=== PATIENT | female | born 1930 | race Caucasian/White ===

== ENCOUNTER 2016-11-26 19:22 | Emergency (ER) | payer OTHER ==
[~2016-11-26] VITALS: Ht 167.6 cm; Wt 85.9 kg
[~2016-11-26 19:22] MED LIST: ACIPHEX20 MG PO; ADVAIR 100/501 DISK IH; ALLEGRA60 MG PO; AVAPRO300 MG PO; FUROSEMIDE20 MG PO; IBUPROFEN600 MG PO; IRON; IRON27 MG PO; LABETALOL HCL100 MG PO; NEXIUM20 MG PO; PRESERVISION A1 EACH PO; PROVENTIL,2.5 MG/3 M IH; SPIRIVA1 INHALATI IH; TYLENOL; VERAPAMIL HCL240 M2 PO; ZOCOR40 MG PO; [UNRECOGNIZED DRUG - OTHER]
[2016-11-26] MEDS ORDERED: NORVASC5 MG PO (20:08)
[2016-11-26] MEDS ORDERED: ZANAFLEX2 M1 PO (20:08)
[2016-11-26 21:00] LABS: HEMATOCRIT 44.2 % (36.0-46.0); MCH 31.5 PG (29.0-34.0); MCHC 34.2 G/DL (30.0-36.0); MCV 92.3 FL (83-99); MEAN PLAT.VOLUME 9.2 uM^3 (9.5-12.4); PLATELET COUNT 279 K/uL (156-360); RBC DIS.WIDTH-CV 13.3 % (11.8-14.6); RBC DIS.WIDTH-SD 45.8 % (39-53); RED BLOOD COUNT 4.79 M/uL (3.80-5.20); WHITE BLOOD COUNT 11.9 K/uL (4.1-10.2)
[2016-11-26 21:08] LABS: CHLORIDE 93 mEq/L (99-109); POTASSIUM 4.6 mEq/L (3.7-5.4); SODIUM 126 mEq/L (136-147)
[2016-11-26 21:10] LABS: GLUCOSE 89 mg/dL (70-99)
[2016-11-26 21:11] LABS: ANION GAP 9 MEQ/L (2-14)
[2016-11-26 21:12] LABS: TOTAL BILIRUBIN 0.6 mg/dL (0.0-1.0)
[2016-11-26 21:13] LABS: ALKALINE PHOSPHATASE 99 IU/L (3-129)
[2016-11-26 21:14] LABS: GFR ESTIMATE (CALCULATED) 32 mL/min/
[2016-11-26 21:15] LABS: DIRECT BILIRUBIN 0.3 mg/dL (0.0-0.3); UREA NITROGEN (BUN) 29 mg/dL (9-23)
[2016-11-26 21:17] LABS: LIPASE 23 U/L (1.0-51.0)
[2016-11-26 22:23] LABS: ADD MIUA? YES; BILIRUBIN NEGATIVE; BLOOD NEGATIVE; COLOR YELLOW ((YELLOW)); GLUCOSE (STRIP) NEGATIVE; KETONES 20; LEUKOCYTES MODERATE; NITRITE NEGATIVE; PROTEIN (STRIP) 30; SPECIFIC GRAVITY 1.018 (1.000-1.030); UROBILINOGEN 0.2 MG/DL (0.2-1.0)
[2016-11-26 22:28] LABS: BACTERIA RARE /HPF; EPITHELIAL CELLS 2+ /HPF; MUCUS TRACE /LPF; RED BLOOD CELLS 0-5 /HPF (0-5); UCUL ADDED? YES; WHITE BLOOD CELLS 30-40 /HPF (0-5)
[2016-11-26] MEDS ORDERED: CIPRO500 MG PO (22:32)
[2016-11-26 23:12] VITALS: BP 158/107
== END 2016-11-26 23:12 | disposition home or self-care (01) ==
LOC: EME 19:22
PROVIDERS: Emergency Medicine
DX: N39.0 Urinary tract infection, site not specified (principal); K80.20 Calculus of gallbladder without cholecystitis without obstruction; K44.9 Diaphragmatic hernia without obstruction or gangrene; I12.9 Hypertensive chronic kidney disease with stage 1 through stage 4 chronic kidney disease, or unspecified chronic kidney disease; N18.1 Chronic kidney disease, stage 1; J44.9 Chronic obstructive pulmonary disease, unspecified; K21.9 Gastro-esophageal reflux disease without esophagitis; Z88.6 Allergy status to analgesic agent; Z87.891 Personal history of nicotine dependence
CPT/HCPCS: 74176; 80048; 80076; 81003; 83690; 85027; 87086; 99281; 99285; J1885; J2270; J2405

== ENCOUNTER 2017-01-09 06:11 | Day surgery (SDC) | payer OTHER ==
[~2017-01-09] VITALS: Ht 170.2 cm; Wt 81.6 kg
[~2017-01-09 06:11] MED LIST changes: +ACETAMINOPHN-T1 EACH PO; +CIPRO500 MG PO; +CYANOCOBALAM1000 MCG PO; +FENTANYL1 EAC5 TD; +MIRALAX119 GM PO; +NORVASC5 MG PO; +OMEPRAZOLE20 MG PO; +ZANAFLEX2 M1 PO; +ZETIA10 MG PO
[2017-01-09 06:44] VITALS: BP 106/63
[2017-01-09] MEDS ORDERED: HYDROCODON-ACE1 EAC7 PO (09:42)
[2017-01-09 13:06] LABS: TROP-I INTERPRETATION NEGATIVE; TROPONIN-I < 0.01 ng/mL (0.0-0.30)
[2017-01-09 14:00] VITALS: BP 90/53
[2017-01-09 14:45] VITALS: BP 89/53
== END 2017-01-09 14:45 | disposition home or self-care (01) ==
LOC: SDC 06:11
PROVIDERS: Anesthesiology
DX: S32.011A Stable burst fracture of first lumbar vertebra, initial encounter for closed fracture (principal); I97.88 Other intraoperative complications of the circulatory system, not elsewhere classified; I95.9 Hypotension, unspecified; I48.91 Unspecified atrial fibrillation; I10 Essential (primary) hypertension; J44.9 Chronic obstructive pulmonary disease, unspecified; K21.9 Gastro-esophageal reflux disease without esophagitis; E78.5 Hyperlipidemia, unspecified; I73.9 Peripheral vascular disease, unspecified; H35.30 Unspecified macular degeneration; E78.00 Pure hypercholesterolemia, unspecified
CPT/HCPCS: 72100; 76000; 84484; 88307; 88311; 93005; C1713; J0330; J0690; J2250; J2405; J3010; Q0175

== ENCOUNTER 2017-09-12 19:04 | Inpatient (IN) | payer OTHER ==
[~2017-09-12] VITALS: Ht 172.7 cm; Wt 90.7 kg
[~2017-09-12 19:04] MED LIST changes: +AVAPRO75 MG PO; +HYDROCODON-ACE1 EAC7 PO; +NORVASC2.5 MG PO; -NORVASC5 MG PO
[2017-09-12 20:03] LABS: HEMATOCRIT 43.4 % (36.0-46.0); HEMOGLOBIN 14.6 G/DL (11.9-15.5); MCH 32.4 PG (29.0-34.0); MCHC 33.6 G/DL (30.0-36.0); MCV 96.2 FL (83-99); PLATELET COUNT 257 K/uL (156-360); RBC DIS.WIDTH-CV 15.3 % (11.8-14.6); RBC DIS.WIDTH-SD 54.4 % (39-53); RED BLOOD COUNT 4.51 M/uL (3.80-5.20); WHITE BLOOD COUNT 11.5 K/uL (4.1-10.2)
[2017-09-12 20:11] LABS: CHLORIDE 98 mEq/L (99-109); SODIUM 136 mEq/L (136-147)
[2017-09-12 20:13] LABS: GLUCOSE 98 mg/dL (70-99)
[2017-09-12 20:17] LABS: GFR ESTIMATE (CALCULATED) 56 mL/min/
[2017-09-12 20:18] LABS: UREA NITROGEN (BUN) 18 mg/dL (9-23)
[2017-09-12] MEDS ORDERED: METAMUCIL POWD822 G1 PO (21:30)
[2017-09-12] MEDS ORDERED: ERGOCALCIF50000 UNIT PO (21:31)
[2017-09-12] MEDS ORDERED: ADULT ASPIRIN R81 MG PO (21:31)
[2017-09-13] VITALS (7 sets, daily range): BP systolic 131–156; BP diastolic 73–92
[2017-09-13 01:06] LABS: APPEARANCE CLEAR ((CLEAR)); BILIRUBIN NEGATIVE; BLOOD NEGATIVE; COLOR YELLOW ((YELLOW)); GLUCOSE (STRIP) NEGATIVE; KETONES NEGATIVE; LEUKOCYTES NEGATIVE; NITRITE NEGATIVE; PROTEIN (STRIP) NEGATIVE; SPECIFIC GRAVITY 1.013 (1.000-1.030); UCUL ADDED? NO; UROBILINOGEN 0.2 MG/DL (0.2-1.0)
[2017-09-14 07:58] VITALS: BP 117/71
[2017-09-14 08:01] LABS: HEMATOCRIT 36.4 % (36.0-46.0); MCV 99.7 FL (83-99)
[2017-09-14 08:02] LABS: HEMOGLOBIN 11.6 G/DL (11.9-15.5)
[2017-09-14 08:03] LABS: TROP-I INTERPRETATION NEGATIVE; TROPONIN-I < 0.01 ng/mL (0.0-0.30)
[2017-09-14 08:55] LABS: CHLORIDE 106 MEQ/L (99-109); CREATININE 0.9 MG/DL (0.6-1.3); GFR ESTIMATE (CALCULATED) > 59 mL/min/; GLUCOSE 110 mg/dL (70-99); POTASSIUM 4.4 MEQ/L (3.7-5.4); SODIUM 137 MEQ/L (136-147); UREA NITROGEN (BUN) 13 mg/dL (9-23)
[2017-09-14 09:00] LABS: MCH 31.4 PG (29.0-34.0); MCHC 31.4 G/DL (30.0-36.0); PLATELET COUNT 189 K/uL (156-360); RBC DIS.WIDTH-CV 15.7 % (11.8-14.6); RBC DIS.WIDTH-SD 57.6 % (39-53); RED BLOOD COUNT 3.66 M/uL (3.80-5.20); WHITE BLOOD COUNT 9.9 K/uL (4.1-10.2)
[2017-09-14 12:15] VITALS: BP 130/74
[2017-09-14 17:08] VITALS: BP 110/70
[2017-09-14 19:53] VITALS: BP 143/74
[2017-09-15 00:12] VITALS: BP 169/86
[2017-09-15 03:35] VITALS: BP 118/74
[2017-09-15 07:50] VITALS: BP 140/58
[2017-09-15 11:40] VITALS: BP 107/60
[2017-09-15 16:08] VITALS: BP 128/78
[2017-09-15 19:26] VITALS: BP 125/76
[2017-09-16] VITALS: BP 140/78
[2017-09-16 03:27] VITALS: BP 136/86
[2017-09-16 07:27] VITALS: BP 127/72
[2017-09-16 11:03] VITALS: BP 127/66
[2017-09-16 14:38] LABS: HEMATOCRIT 34.4 % (36.0-46.0); MCH 31.5 PG (29.0-34.0); MCV 98.6 FL (83-99); PLATELET COUNT 240 K/uL (156-360); RBC DIS.WIDTH-CV 15.8 % (11.8-14.6); RBC DIS.WIDTH-SD 56.3 % (39-53); RED BLOOD COUNT 3.49 M/uL (3.80-5.20); WHITE BLOOD COUNT 8.6 K/uL (4.1-10.2)
[2017-09-16 15:30] VITALS: BP 136/81
[2017-09-17 00:09] VITALS: BP 138/86
[2017-09-17 04:13] VITALS: BP 145/79
[2017-09-17 06:22] LABS: HEMATOCRIT 28.7 % (36.0-46.0); HEMOGLOBIN 9.3 G/DL (11.9-15.5); MCH 32.1 PG (29.0-34.0); MCHC 32.4 G/DL (30.0-36.0); PLATELET COUNT 207 K/uL (156-360); RBC DIS.WIDTH-CV 15.4 % (11.8-14.6); RBC DIS.WIDTH-SD 56.1 % (39-53); WHITE BLOOD COUNT 6.6 K/uL (4.1-10.2)
[2017-09-17 06:39] LABS: CHLORIDE 98 MEQ/L (99-109); CREATININE 0.8 MG/DL (0.6-1.3); GFR ESTIMATE (CALCULATED) > 59 mL/min/; GLUCOSE 100 mg/dL (70-99); POTASSIUM 4.2 MEQ/L (3.7-5.4); SODIUM 137 MEQ/L (136-147); UREA NITROGEN (BUN) 17 mg/dL (9-23)
[2017-09-17 07:22] VITALS: BP 103/75
[2017-09-17 11:29] VITALS: BP 112/55
[2017-09-17] MEDS ORDERED: TYLENOL EXTRA500 MG PO (15:38)
[2017-09-17] MEDS ORDERED: DOCUSATE SODIU100 MG PO (15:38)
[2017-09-17] MEDS ORDERED: HYDROCODON-ACE1 EAC7 PO (15:39)
[2017-09-17 15:40] VITALS: BP 122/79; BP 160/83
== END 2017-09-17 16:42 | DRG 470 ==
LOC: EME → EDBD 19:04 → EME 19:04 → 3EAST 21:35 → EDOF 21:35 → ENRESERV 21:44 → 3EAST 23:59
PROVIDERS: Family Medicine; Internal Medicine; Internal Medicine Cardiovascular Disease; Orthopaedic Surgery; Physician Assistant; Physician Assistant Medical
PROC: 0SRR0JA Replacement of Right Hip Joint, Femoral Surface with Synthetic Substitute, Uncemented, Open Approach (ICD-10-PCS; principal; 2017-09-13)
DX: S72.011A Unspecified intracapsular fracture of right femur, initial encounter for closed fracture (principal); I48.92 Unspecified atrial flutter; F33.9 Major depressive disorder, recurrent, unspecified; J90 Pleural effusion, not elsewhere classified; R09.02 Hypoxemia; I12.9 Hypertensive chronic kidney disease with stage 1 through stage 4 chronic kidney disease, or unspecified chronic kidney disease; J43.9 Emphysema, unspecified; S51.012A Laceration without foreign body of left elbow, initial encounter; W01.0XXA Fall on same level from slipping, tripping and stumbling without subsequent striking against object, initial encounter; E66.9 Obesity, unspecified; N18.3 Chronic kidney disease, stage 3 (moderate); I48.2 Chronic atrial fibrillation; D64.9 Anemia, unspecified; E78.5 Hyperlipidemia, unspecified; H35.30 Unspecified macular degeneration; H54.8 Legal blindness, as defined in USA; I73.9 Peripheral vascular disease, unspecified; K21.9 Gastro-esophageal reflux disease without esophagitis; K59.00 Constipation, unspecified; M81.0 Age-related osteoporosis without current pathological fracture; G89.29 Other chronic pain; M19.90 Unspecified osteoarthritis, unspecified site; R00.0 Tachycardia, unspecified; Z68.30 Body mass index [BMI] 30.0-30.9, adult; Y92.009 Unspecified place in unspecified non-institutional (private) residence as the place of occurrence of the external cause; Z79.82 Long term (current) use of aspirin; Z87.891 Personal history of nicotine dependence; Z82.49 Family history of ischemic heart disease and other diseases of the circulatory system
CPT/HCPCS: 71045; 71046; 72170; 73502; 80048; 81003; 82308 90; 84484; 85014; 85018; 85027; 85610; 85730; 86850; 86900; 86901; 93005; 93971; 94010; 94640; 94640 76; 94760; 94799; 97530 GO; 97530 GP; 99202; 99281; 99285; J0690; J1644; J1940; J7030; J7120; S0020

== ENCOUNTER 2017-10-29 16:37 | Inpatient (IN) | payer OTHER ==
[~2017-10-29] VITALS: Ht 170.2 cm; Wt 82.6 kg
[~2017-10-29 16:37] MED LIST changes: +ADULT ASPIRIN R81 MG PO; +DOCUSATE SODIU100 MG PO; +ERGOCALCIF50000 UNIT PO; +METAMUCIL POWD822 G1 PO; +TYLENOL EXTRA500 MG PO
[2017-10-29 17:40] LABS: COMMENTS - BLOOD GASES A+C+; DEVICE HHFNC; FI02 40 %; O2 FLOW 40 L/MIN; PCO2 41 mm Hg (35-45); PO2 124 mm Hg (80-100); SITE LR; TOTAL RESP RATE 38 resp/min; pH 7.43 (7.35-7.45)
[2017-10-29 17:41] LABS: BASE EXCESS 2.6 mEq/L (-3 to +3); BICARBONATE 27.2 mEq/L (22-26); CARBOXY HGB 2.6 % (0-5); METHEMOGLOBIN 1.2 % (0-1.5)
[2017-10-29 18:08] LABS: BASOPHIL (%) 0.1 % (0-1); EOSINOPHIL (%) 0 % (0-5); HEMOGLOBIN 11.9 G/DL (11.9-15.5); IMMATURE GRANULOCYTE (%) 0.4 % (0.0-0.7); LYMPHOCYTE (%) 2.2 % (15-42); LYMPHOCYTE COUNT 0.3 K/uL (1.0-2.8); MCH 30.9 PG (29.0-34.0); MCHC 32.2 G/DL (30.0-36.0); MCV 96.1 FL (83-99); MONOCYTE (%) 3.5 % (3-12); MONOCYTE COUNT 0.4 K/uL (0-0.8); NEUTROPHIL (%) 93.8 % (45-76); NEUTROPHIL COUNT 10.8 K/uL (1.8-6.4); PLATELET COUNT 303 K/uL (156-360); RBC DIS.WIDTH-CV 14.7 % (11.8-14.6); RBC DIS.WIDTH-SD 51.6 % (39-53); RED BLOOD COUNT 3.85 M/uL (3.80-5.20); WHITE BLOOD COUNT 11.5 K/uL (4.1-10.2)
[2017-10-29 18:18] LABS: CHLORIDE 99 mEq/L (99-109); POTASSIUM 4.2 mEq/L (3.7-5.4); SODIUM 135 mEq/L (136-147)
[2017-10-29 18:20] LABS: GLUCOSE 158 mg/dL (70-99)
[2017-10-29 18:23] LABS: GFR ESTIMATE (CALCULATED) 56 mL/min/
[2017-10-29 18:24] LABS: UREA NITROGEN (BUN) 17 mg/dL (9-23)
[2017-10-29 18:36] LABS: TROP-I INTERPRETATION NEGATIVE; TROPONIN-I < 0.01 ng/mL (0.0-0.30)
[2017-10-29] MEDS ORDERED: TRAMADOL HCL50 MG PO (20:01)
[2017-10-29] MEDS ORDERED: DULCOLAX5 MG PO (20:01)
[2017-10-29 21:50] VITALS: BP 125/74
[2017-10-29 22:01] VITALS: BP 125/74
[2017-10-29 22:31] VITALS: BP 98/67
[2017-10-29 23:00] VITALS: BP 97/63
[2017-10-29 23:30] VITALS: BP 104/60
[2017-10-30] VITALS (17 sets, daily range): BP systolic 106–194; BP diastolic 65–172
[2017-10-31 00:28] VITALS: BP 133/84
[2017-10-31 04:00] VITALS: BP 143/85
[2017-10-31 06:10] LABS: HEMATOCRIT 39.3 % (36.0-46.0); HEMOGLOBIN 12.4 G/DL (11.9-15.5); MCH 30.5 PG (29.0-34.0); MCHC 31.6 G/DL (30.0-36.0); MCV 96.8 FL (83-99); PLATELET COUNT 364 K/uL (156-360); RBC DIS.WIDTH-CV 14.4 % (11.8-14.6); RBC DIS.WIDTH-SD 51.9 % (39-53); RED BLOOD COUNT 4.06 M/uL (3.80-5.20); WHITE BLOOD COUNT 9.9 K/uL (4.1-10.2)
[2017-10-31 06:27] LABS: CHLORIDE 98 MEQ/L (99-109); CREATININE 0.9 MG/DL (0.6-1.3); GFR ESTIMATE (CALCULATED) > 59 mL/min/; GLUCOSE 144 mg/dL (70-99); POTASSIUM 4.9 MEQ/L (3.7-5.4); SODIUM 137 MEQ/L (136-147)
[2017-10-31 06:49] LABS: UREA NITROGEN (BUN) 26 mg/dL (9-23)
[2017-10-31 07:03] VITALS: BP 155/89
[2017-10-31 15:03] VITALS: BP 138/78
[2017-10-31 19:53] VITALS: BP 114/75
[2017-11-01 00:46] VITALS: BP 142/88
[2017-11-01 01:36] LABS: APPEARANCE SL.HAZY ((CLEAR)); BILIRUBIN NEGATIVE; BLOOD NEGATIVE; COLOR YELLOW ((YELLOW)); GLUCOSE (STRIP) NEGATIVE; KETONES NEGATIVE; LEUKOCYTES MODERATE; NITRITE NEGATIVE; PROTEIN (STRIP) 30; SPECIFIC GRAVITY 1.036 (1.000-1.030); UROBILINOGEN 0.2 MG/DL (0.2-1.0)
[2017-11-01 01:41] LABS: BACTERIA NONE SEEN /HPF; EPITHELIAL CELLS 1+ /HPF; MUCUS TRACE /LPF; UCUL ADDED? YES; WHITE BLOOD CELLS 20-30 /HPF (0-5)
[2017-11-01 04:11] VITALS: BP 138/85
[2017-11-01 07:33] VITALS: BP 156/96
[2017-11-01 11:40] VITALS: BP 137/85
[2017-11-01] MEDS ORDERED: LOPRESSOR25 MG PO (11:56)
[2017-11-01] MEDS ORDERED: PREDNISONE5 M1 PO (11:57)
[2017-11-01] MEDS ORDERED: AUGMENTIN875 MG PO (12:58)
== END 2017-11-01 16:06 | disposition home or self-care (01) | DRG 189 ==
LOC: EME 16:37 → EDOF 19:52 → 4WEST 19:52 → ENRESERV 19:54 → 4WEST 21:44 → ENRESERV 10-30 18:04 → 5SOUTH 10-30 19:26
PROVIDERS: Emergency Medicine; Physician Assistant; Surgery
PROC: 5A0935Z Assistance with Respiratory Ventilation, Less than 24 Consecutive Hours (ICD-10-PCS; principal; 2017-10-29)
DX: J96.21 Acute and chronic respiratory failure with hypoxia (principal); K44.9 Diaphragmatic hernia without obstruction or gangrene; K57.30 Diverticulosis of large intestine without perforation or abscess without bleeding; L03.115 Cellulitis of right lower limb; I10 Essential (primary) hypertension; J44.1 Chronic obstructive pulmonary disease with (acute) exacerbation; Z66 Do not resuscitate; Z96.641 Presence of right artificial hip joint; K80.20 Calculus of gallbladder without cholecystitis without obstruction; J18.9 Pneumonia, unspecified organism; I73.9 Peripheral vascular disease, unspecified; I48.2 Chronic atrial fibrillation; H35.30 Unspecified macular degeneration; E78.00 Pure hypercholesterolemia, unspecified; D64.9 Anemia, unspecified; J44.0 Chronic obstructive pulmonary disease with (acute) lower respiratory infection
CPT/HCPCS: 36600; 71045; 71275; 80048; 81003; 83605; 83880; 84145 90; 84484; 85025; 85027; 87040; 87086; 87106; 87641; 93005; 93306; 93970; 94002; 94640; 94760; 94799; 99281; 99285; J1650; J1940; J1956; J2543; J2920; J2930; J3370; J7050; S0028